=== PATIENT | male | born 1950 | race Caucasian/White ===

== ENCOUNTER 2023-01-21 10:49 | Emergency (ER) | payer MEDICARE ==
[~2023-01-21] VITALS: Ht 177 cm; Wt 106.0 kg
--- NOTE | 2023-01-21 11:12 | ED Cough/URI ---
General Chief Complaint: Cough/Cold/Flu Symptoms Stated Complaint: CHEST CONGESTION | COUGH Nursing Triage Note: PT AMBULATES TO RM 6 WITH C/O COUGH X1 MO WITH YELLOW MUCUS, DIARRHEA, N/V 2 DAYS AGO. Source: patient Exam Limitations: no limitations History of Present Illness Date Seen by Provider: Jan 21, 2023 Time Seen by Provider: 11:10 Initial Comments Patient is a 72-year-old male who presents to ED with flulike symptoms. States symptoms started about a month ago. Started having a cough reports yellowish phlegm production. States he did get better for a week or so and then symptoms continue. He states he has had diarrhea over the past week. Vomited twice yesterday. Reports body aches chills fatigue weakness. He does report some shortness of breath and wheezing with chest tightness. No known cardiac hi story. History of type 2 diabetes, dyslipidemia. Denies of any leg swelling, recent travels or surgeries. Has been using [id number] NyQuil and DayQuil without much improvement. Denies of any known fevers. Patient denies of any headache sore throat ear pain neck pain, frequent urination, decreased urine output, abdominal pain. Patient has been eating and drinking at home. Allergies and Home Medications Allergies Coded Allergies: No Known Drug Allergies (Unverified , 01/21/23) Patient Home Medication List Home Medication List Reviewed: Yes Albuterol Sulfate (Ventolin Hfa) 1 Puff Puff, 2 PUFF INH Q4H Prescribed by: KARLEY CABRAL on 01/21/23 1229 Benzonatate (Tessalon Perles) 100 Mg Capsule, 200 MG PO TID Prescribed by: KARLEY CABRAL on 01/21/23 1229 Review of Systems Review of Systems Constitutional: chills; No diaphoresis, No fever; malaise, weakness EENTM: No ear pain, No blurred vision, No mouth pain, No mouth swelling, No throat pain, No throat swelling Respiratory: cough, short of breath Cardiovascular: chest pain Gastrointestinal: No abdominal pain; diarrhea, nausea, vomiting Genitourinary: No decreased output, No discharge Musculoskeletal: No back pain, No joint pain Skin: No change in color All Other Systems Reviewed Negative Unless Noted: Yes Past Dkjzapn-[id number]-[id number] Hx Immunizations Up To Date Influenza Vaccine Up-to-Date: No; Not Current Physical Exam Vital Signs - First Documented 01/21/23 01/21/23 10:59 12:44 Temp 36.7 Pulse 101 Resp 20 B/P (MAP) 156/88 (110) Pulse Ox 96 O2 Delivery Room Air Capillary Refill : Less Than 3 Seconds Height: '" Weight: lbs. oz. kg; 33.00 BMI Method: General Appearance: WD/WN, no apparent distress Eyes: Bilateral Eye Normal Inspection, Bilateral Eye PERRL, Bilateral Eye EOMI HEENT: PERRL/EOMI, normal ENT inspection, TMs normal, pharynx normal Neck: non-tender, full range of motion, supple Respiratory: chest non-tender, lungs clear, normal breath sounds, no respiratory distress, no accessory muscle use Cardiovascular: regular rate, rhythm, no edema, no gallop, no JVD Gastrointestinal: normal bowel sounds, non tender, soft, no organomegaly Extremities: normal range of motion, non-tender, normal inspection, no pedal edema 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, no motor/sensory deficits, alert, normal mood/affect, oriented x 3 Skin: normal color, warm/dry Progress/Results/Core Measures Suspected Sepsis SIRS Temperature: Pulse: 101 Respiratory Rate: 20 Laboratory Tests 01/21/23 11:46: White Blood Count 4.3 Blood Pressure 156 /88 Mean: 110 Laboratory Tests 01/21/23 11:46: Creatinine 0.91, Platelet Count 235, Total Bilirubin 0.5 Results/Orders Lab Results Laboratory Tests Test 01/21/23 11:20 01/21/23 11:46 Range/Units Influenza Type A (RT-PCR) Not Detected Not Detecte Influenza Type B (RT-PCR) Not Detected Not Detecte SARS-CoV-2 RNA (RT-PCR) Detected H Not Detecte White Blood Count 4.3 4.3-11.0 10^3/uL Red Blood Count 4.53 4.30-5.52 10^6/uL Hemoglobin 14.0 13.3-17.7 g/dL Hematocrit 40 40-54 % Mean Corpuscular Volume 89 80-99 fL Mean Corpuscular Hemoglobin 31 25-34 pg Mean Corpuscular Hemoglobin Concent 35 32-36 g/dL Red Cell Distribution Width 12.1 10.0-14.5 % Platelet Count 235 130-400 10^3/uL Mean Platelet Volume 8.2 L 9.0-12.2 fL Immature Granulocyte % (Auto) 0 % Neutrophils (%) (Auto) 53 42-75 % Lymphocytes (%) (Auto) 33 12-44 % Monocytes (%) (Auto) 9 0-12 % Eosinophils (%) (Auto) 4 0-10 % Basophils (%) (Auto) 1 0-10 % Neutrophils # (Auto) 2.3 1.8-7.8 10^3/uL Lymphocytes # (Auto) 1.4 1.0-4.0 10^3/uL Monocytes # (Auto) 0.4 0.0-1.0 10^3/uL Eosinophils # (Auto) 0.2 0.0-0.3 10^3/uL Basophils # (Auto) 0.0 0.0-0.1 10^3/uL Immature Granulocyte # (Auto) 0.0 0.0-0.1 10^3/uL Sodium Level 136 135-145 MMOL/L Potassium Level 4.2 3.6-5.0 MMOL/L Chloride Level 103 98-107 MMOL/L Carbon Dioxide Level 22 21-32 MMOL/L Anion Gap 11 5-14 MMOL/L Blood Urea Nitrogen 13 7-18 MG/DL Creatinine 0.91 0.60-1.30 MG/DL Estimat Glomerular Filtration Rate 91 BUN/Creatinine Ratio 14 Glucose Level 258 H 70-105 MG/DL Calcium Level 8.7 8.5-10.1 MG/DL Corrected Calcium 8.8 8.5-10.1 MG/DL Total Bilirubin 0.5 0.1-1.0 MG/DL Aspartate Amino Transf (AST/SGOT) 19 5-34 U/L Alanine Aminotransferase (ALT/SGPT) 26 0-55 U/L Alkaline Phosphatase 90 40-136 U/L Troponin I < 0.028 <0.028 NG/ML C-Reactive Protein High Sensitivity 0.51 H 0.00-0.50 MG/DL B-Type Natriuretic Peptide < 10.0 <100.0 PG/ML Total Protein 7.0 6.4-8.2 GM/DL Albumin 3.9 3.2-4.5 GM/DL My Orders Orders - SAIDA ANNA Cbc And Automated Diff (01/21/23 11:09) Comprehensive Metabolic Panel (01/21/23 11:09) Troponin I Pablo (01/21/23 11:09) Ekg Tracing (01/21/23 11:09) Hs C Reactive Protein (01/21/23 11:09) Bnp Pablo (01/21/23 11:09) Covid 19 Inhouse Test (01/21/23 11:09) Influenza A And B By Pcr (01/21/23 11:09) Chest 1 View, Ap/Pa Only (01/21/23 11:12) Dexamethasone Injection (Dexamethasone (01/21/23 12:30) Medications Given in ED Current Medications Medications Dose Ordered Sig/Channing Route Start Time Stop Time Status Last Admin Dose Admin Dexamethasone Sodium Phosphate 10 mg ONCE ONCE IM 01/21/23 12:30 01/21/23 12:31 DC 01/21/23 12:36 10 MG Vital Signs/I&O 01/21/23 01/21/23 10:59 12:44 Temp 36.7 Pulse 101 84 Resp 20 20 B/P (MAP) 156/88 (110) 146/78 Pulse Ox 96 97 O2 Delivery Room Air Capillary Refill : Less Than 3 Seconds Blood Pressure Mean: 110 ECG Comment Sinus rhythm with occasional ectopic premature complexes, 90 bpm, QRS duration 97 MS, QTc 405 MS. Departure Communication (PCP) Patient presents to ED for flulike symptoms. Symptoms started around a month ago. Symptoms became worse over the past week. No known cardiac history history of COPD or asthma. Differential diagnosis viral syndrome, pneumonia, CHF. He does report some chest tightness. EKG CBC, CMP, troponin COVID influenza was ordered. CBC and CMP grossly unremarkable. Blood sugar 258. Nor mal troponin and BNP. Chest x-ray was negative for pneumonia, pneumothorax, mediastinal widening. No appreciation of lower leg swelling. EKG showed sinus rhythm without evidence of ST elevation or depression. he Is not tachycardic or hypoxic. Denies smoking. Does not appear in any respiratory distress. Vital signs remained stable. Tested positive for COVID. Unclear when his symptoms did start which he started having symptoms near a month ago. Patient is not a candidate for Paxlovid. Did receive a dose of Decadron to help with inflammation and the cough. He is requesting something different for the cough. Will discharge with Tessalon Perles. At this time alternate Tylenol and ibuprofen . Conservative treatment. Recommend staying hydrated. If any increased work of breathing, chest pain to return back to ED. Follow-up your PCP in 2 to 3 days for reevaluation. Continue wearing a mask at this time as long as you are symptomatic as I do not know when his symptoms started Impression Primary Impression: COVID-19 Disposition: 01 HOME, SELF-CARE Condition: Stable Departure-Patient Inst. Decision time for Depature: 12:28 Referrals: NO,LOCAL PHYSICIAN (PCP/Family) Primary Care Physician Patient Instructions: COVID-19 (DC) Add. Discharge Instructions: Take benzoate for cough. Recommend staying hydrated. Tylenol ibuprofen. If increased shortness of breath or wheezing to return back to ED. All discharge instructions reviewed with patient and/or family. Voiced understanding. Scripts Albuterol Sulfate (VENTOLIN HFA) 1 Puff Puff 2 PUFF INH Q4H, #1 EA 1 PUFF = 90 MCG Prov: SAIDA ANNA 01/21/23 Benzonatate (TESSALON PERLES) 100 Mg Capsule 200 MG PO TID for Cough, #20 CAP Prov: SAIDA ANNA 01/21/23 SAIDA ANNA Jan 21, 2023 11:12
[2023-01-21 11:51] LABS: BASOPHILS % (AUTO) 1 % (0-10); EOSINOPHILS # (AUTO) 0.2 10^3/uL (0.0-0.3); EOSINOPHILS % (AUTO) 4 % (0-10); HEMATOCRIT 40 % (40-54); LYMPHOCYTES # (AUTO) 1.4 10^3/uL (1.0-4.0); LYMPHOCYTES % (AUTO) 33 % (12-44); MEAN CORPUSCULAR HEMOGLOBIN 31 pg (25-34); MEAN CORPUSCULAR HGB CONC 35 g/dL (32-36); MEAN CORPUSCULAR VOLUME 89 fL (80-99); MEAN PLATELET VOLUME 8.2 fL (9.0-12.2); MONOCYTES # (AUTO) 0.4 10^3/uL (0.0-1.0); MONOCYTES % (AUTO) 9 % (0-12); NEUTROPHILS # (AUTO) 2.3 10^3/uL (1.8-7.8); NEUTROPHILS % (AUTO) 53 % (42-75); PLATELET COUNT 235 10^3/uL (130-400); WHITE BLOOD COUNT 4.3 10^3/uL (4.3-11.0)
[2023-01-21 12:02] LABS: ALBUMIN 3.9 GM/DL (3.2-4.5); CHLORIDE 103 MMOL/L (98-107); POTASSIUM 4.2 MMOL/L (3.6-5.0); SODIUM 136 MMOL/L (135-145)
--- NOTE | 2023-01-21 12:02 | Diagnostic Imaging Report ---
Indication: Cough. Time of Exam: 11:38 AM No prior studies are available for comparison. Findings: The heart size is normal. The pulmonary vascularity is unremarkable. The lungs are clear. No infiltrate, effusion or pneumothorax is detected. Impression: No acute cardiopulmonary process is detected. Dictated by: Dictated on workstation # [id number]
[2023-01-21 12:03] LABS: CALCIUM 8.7 MG/DL (8.5-10.1)
[2023-01-21 12:04] LABS: GLUCOSE 258 MG/DL (70-105)
[2023-01-21 12:06] LABS: BILIRUBIN,TOTAL 0.5 MG/DL (0.1-1.0); CARBON DIOXIDE 22 MMOL/L (21-32)
[2023-01-21 12:08] LABS: ALKALINE PHOSPHATASE 90 U/L (40-136); CREATININE SERUM 0.91 MG/DL (0.60-1.30); GFR ESTIMATED 91
[2023-01-21 12:09] LABS: BUN/CREATININE RATIO 14
[2023-01-21 12:11] LABS: ALANINE AMINOTRANSFERASE 26 U/L (0-55)
[2023-01-21] MEDS ORDERED: RT-ALBUINH INH (12:29)
[2023-01-21] MEDS ORDERED: BENZ100C18 PO (12:29)
[2023-01-21] MEDS ORDERED: dexAMETHasone INJ 10 MG/ML 1 ML VIAL IM ONE (12:30)
[2023-01-21 12:44] VITALS: BP 146/78
== END 2023-01-21 12:45 | disposition home or self-care (01) ==
LOC: ER 10:54
DX: U07.1 COVID-19 (principal); R05.9 Cough, unspecified; R19.7 Diarrhea, unspecified; R53.83 Other fatigue; R53.1 Weakness; R06.02 Shortness of breath
CPT/HCPCS: 36415; 71045; 80053; 83880; 84484; 85025; 86141; 87636; 93005